=== PATIENT | female | born 1975 | race Caucasian/White ===

== ENCOUNTER 2017-09-28 12:40 | Emergency (ER) | payer SELFPAY ==
[~2017-09-28] VITALS: Ht 167.6 cm; Wt 68.2 kg
[2017-09-28 13:25] VITALS: Ht 167.6 cm; Wt 68.2 kg
[2017-09-28] MEDS ORDERED: SEROQUEL100 MG PO (13:26)
[2017-09-28] MEDS ORDERED: CLONAZEPAM1 MG/TAB PO (13:26)
[2017-09-28] MEDS ORDERED: [UNRECOGNIZED DRUG - OTHER] (13:27)
[2017-09-28 14:27] LABS: BASOPHILS 0.5 % (0-2); EOSINOPHILS 1.6 % (0-7); HEMATOCRIT 41.5 % (36.0-48.0); HEMOGLOBIN 14.3 g/dL (12-16); IMMATURE GRANULOCYTES 0.1 % (0-5); MCH 29.7 pg (26.0-34.0); MCHC 34.5 g/dL (31.0-37.0); MCV 86.1 fL (80.0-100.0); MEAN PLATELET VOLUME 8.8 fL (7.4-10.4); MONOCYTES 5.9 % (2-11); NEUTROPHILS 64.9 % (40-80); PLATELET COUNT 279 10x3/uL (130-400); RBC 4.82 10x6/uL (4.00-5.40); WBC 8.5 10x3/uL (4.8-10.8)
[2017-09-28 14:42] LABS: ALBUMIN 4.2 g/dL (3.4-5.0); ALKALINE PHOSPHATASE 73 U/L (46-116); ALT (SGPT) 27 U/L (10-68); AMYLASE - SERUM 38 U/L (25-115); BILIRUBIN - TOTAL 0.24 mg/dL (0.2-1.3); CALC OSMOLALITY 277 mosm/kg (275-300); CALCIUM 9.7 mg/dL (8.5-10.1); CARBON DIOXIDE 32.2 mmol/L (21.0-32.0); CHLORIDE - SERUM 100 mmol/L (98-107); CREATININE - SERUM 0.8 mg/dL (0.6-1.3); GLUCOSE 92 mg/dL (74-106); LIPASE 109 U/L (73-393); POTASSIUM - SERUM 3.5 mmol/L (3.5-5.1); PROTEIN - SERUM 8.5 g/dL (6.4-8.2); SODIUM 140 mmol/L (136-145); UREA NITROGEN 11 mg/dL (7-18); eGFR NON AFRICAN AMERICAN 83 mL/min (90-120)
[2017-09-28 15:01] LABS: APPEARANCE CLEAR (CLEAR); BILIRUBIN NEGATIVE (NEGATIVE); COLOR YELLOW (YELLOW); GLUCOSE NEGATIVE (NEGATIVE); KETONE NEGATIVE (NEGATIVE); NITRITE NEGATIVE (NEGATIVE); PROTEIN NEGATIVE (NEGATIVE); UROBILINOGEN NORMAL (NORMAL)
[2017-09-28] MEDS ORDERED: HEALTHYLAX17 GM PO (15:57)
[2017-09-28 16:29] VITALS: BP 116/72
== END 2017-09-28 16:29 | disposition home or self-care (01) ==
LOC: D.ER 12:40
PROVIDERS: Emergency Medicine
DX: K59.00 Constipation, unspecified (principal); R10.9 Unspecified abdominal pain; F17.200 Nicotine dependence, unspecified, uncomplicated

== ENCOUNTER 2019-01-26 10:51 | Emergency (ER) | payer OTHER ==
[~2019-01-26] VITALS: Ht 167.6 cm; Wt 74.1 kg
[~2019-01-26 10:51] MED LIST: CLONAZEPAM1 MG/TAB PO; HEALTHYLAX17 GM PO; SEROQUEL100 MG PO; [UNRECOGNIZED DRUG - OTHER]
[2019-01-26 11:04] VITALS: Ht 167.6 cm; Wt 74.1 kg
[2019-01-26] MEDS ORDERED: BACLOFEN20 M1 PO (13:56)
[2019-01-26] MEDS ORDERED: VOLTAREN75 MG PO (13:56)
[2019-01-26 14:26] VITALS: BP 150/80
== END 2019-01-26 15:53 | disposition home or self-care (01) ==
LOC: D.ER 10:51
DX: S49.92XA Unspecified injury of left shoulder and upper arm, initial encounter (principal); X58.XXXA Exposure to other specified factors, initial encounter